=== PATIENT | female | born 1950 | race Caucasian/White ===

== ENCOUNTER 2017-04-17 13:54 | Inpatient (IN) | payer MEDICARE, OTHER ==
[~2017-04-17] VITALS: Ht 160 cm; Wt 60.8 kg
[~2017-04-17 13:54] MED LIST: AMLO10TA2 PO; Aspirin PO; BENZ1TAB7 PO; BUSP10TA3 PO; CALC-513 PO; HYDR-3326 PO; LEVO50TA PO; LISI10TA59 PO; LORA1TAB PO; METO50TA16 PO; MIRT15TA7 PO; MULT-659 PO; NICO1PAT25 TD; OMEP40CA37 PO; RISP0.2515 PO; TRAM50TA2 PO; TRAZ-144 PO; ZOLP5TAB2 PO
--- NOTE | 2017-04-17 14:28 | NUR ---
TOMI FROM SNF TO ER BED 11. PRESENTS W/ R KNEE PAIN AND SWELLING. PER REPORT, PT WAS SENT BY DR ALLI [id number] POSSIBLE AMPUTATION. GOWNED AND PLACED ON MONITOR. NNAD NOTED. AWAITING MD GARCIA.
--- NOTE | 2017-04-17 14:33 | NUR ---
DR NORTON AT BEDSIDE FOR EVAL.
--- NOTE | 2017-04-17 14:48 | NUR ---
CALLED KARELY CONDE, DR CARSON WAS PAGED.
--- NOTE | 2017-04-17 14:55 | NUR ---
IV LINE STARTED. BLOOD DRAWN AND SENT TO LAB.
[2017-04-17 15:01] LABS: BASOPHILS # (AUTO) 0.4 /CMM (0.0-0.2); BASOPHILS % (AUTO) 3.3 % (0.0-2.0); EOSINOPHILS # (AUTO) 0.3 /CMM (0.0-0.7); HEMATOCRIT 29 % (33-45); HEMOGLOBIN 9.7 g/dL (11.5-14.8); LYMPHOCYTES % (AUTO) 15.7 % (20.0-44.0); MEAN CORPUSCULAR HEMOGLOBIN 25 PG (26.0-33.0); MEAN CORPUSCULAR HGB CONC 34 g/dl (31.0-36.0); MEAN CORPUSCULAR VOLUME 73 fL (82-100); MONOCYTES # (AUTO) 0.6 /CMM (0.1-1.30); MONOCYTES % (AUTO) 4.3 % (2.0-12.0); NEUTROPHILS # (AUTO) 9.6 /CMM (1.8-8.9); NEUTROPHILS % (AUTO) 74.7 % (43.0-81.0); PLATELET COUNT (AUTO) 427 /CMM (150-450); RDW COEFFICIENT OF VARIATION 18.7 (11.5-15.0); RED BLOOD CELL COUNT(AUTO) 3.93 MIL/uL (4.0-5.2); WHITE BLOOD COUNT (AUTO) 12.9 K/uL (4.3-11.0)
[2017-04-17 15:13] LABS: CALCIUM, SERUM 9.9 mg/dL (8.5-10.1); CREATININE 1.1 mg/dL (0.6-1.3); POTASSIUM 3.8 mmol/L (3.5-5.1)
[2017-04-17 15:15] LABS: INR 0.99 (0.85-1.15)
[2017-04-17] MEDS ORDERED: ACET-868 PO (15:22)
[2017-04-17] MEDS ORDERED: RISP0.253 PO (15:22)
[2017-04-17] MEDS ORDERED: AMLO10TA2 PO (15:22)
[2017-04-17] MEDS ORDERED: POLY17PO4 PO (15:22)
[2017-04-17] MEDS ORDERED: PANT40TA4 PO (15:22)
[2017-04-17] MEDS ORDERED: CALC-261 PO (15:22)
[2017-04-17] MEDS ORDERED: ASPI-1169 PO (15:22)
[2017-04-17] MEDS ORDERED: NA P133E RC (15:22)
[2017-04-17] MEDS ORDERED: LISI-603 PO (15:22)
[2017-04-17] MEDS ORDERED: METO25TA20 PO (15:22)
--- NOTE | 2017-04-17 15:23 | NUR ---
CALLED KARELY CONDE, DIRECTOR RIVER RESTORATION WAS REPAGED.
--- NOTE | 2017-04-17 15:31 | NUR ---
MS 202
--- NOTE | 2017-04-17 16:24 | NUR ---
REPORT GIVEN TO ROMULO. PT AWAITING TRANSFER TO FLOOR.
[2017-04-17] MEDS ORDERED: NA PHOS,M-B/NA PHOS,DI-BA 1 EA ENEMA RC PRN (16:30)
[2017-04-17] MEDS ORDERED: MAGNESIUM HYDROXIDE 30 ML UDC PO PRN (16:30)
[2017-04-17] MEDS ORDERED: ONDANSETRON HCL/PF 4 MG/2 ML VIAL IVP PRN (16:30)
[2017-04-17] MEDS ORDERED: HYDROCODONE/APAP 5/325MG 1 EACH TABLET PO PRN (16:30)
[2017-04-17] MEDS ORDERED: Z GUARD REMEDY 2 OZ OINT TP PRN (16:30)
[2017-04-17] MEDS ORDERED: ACETAMINOPHEN 325 MG TABLET PO PRN (16:30)
[2017-04-17] MEDS ORDERED: HYDROCODONE/APAP 10/325MG 1 EA TABLET PO PRN (16:30)
[2017-04-17] MEDS ORDERED: MAG HYDROX/AL HYDROX/SIMETH 30 ML UDC PO PRN (16:30)
[2017-04-17] MEDS ORDERED: TRAMADOL HCL 50 MG TABLET PO PRN (16:30)
[2017-04-17 17:00] VITALS: BP 149/72
[2017-04-17] MEDS ORDERED: busPIRone HCL 10 MG TABLET PO SCH (17:00)
[2017-04-17] MEDS: risperiDONE 1 MG TABLET PO SCH (17:36)
[2017-04-17] MEDS: CALCIUM CARB 600MG /VIT D 1 EACH TABLET PO SCH (17:36)
[2017-04-17] MEDS: busPIRone 5 MG TABLET PO SCH (17:36)
[2017-04-17] MEDS: IV NS 0.9% 1,000 ML IV PRN (17:36)
[2017-04-17] MEDS: METOPROLOL TARTRATE 25 MG TABLET PO SCH (17:36)
--- NOTE | 2017-04-17 18:23 | NUR ---
M/S RN - Notes Admitted from ER with c/o right knee pain and swelling. Patient A/O x 3, afebrile, appears comfortable, no apparent distress seen, oriented to room and use of call light. All belongings accounted, refused valuables to be placed in the safe. Skin assessment done and documented, noted with right knee redness, swelling, scaly skin, and scab, picture was taken for reference. Patient independent with bed mobility. Plan for right AKA on Friday04/19/17. Patient updated on treatment plan. Will continue to monitor closely.
--- NOTE | 2017-04-17 19:15 | NUR ---
ms rn notes received pt in bed, watching tv at this time, a/o x 4, verbally responsive. no distress, no sob noted at this time. iv site on left hand and lfa intact and patent , flushed, with no s/s of infiltration noted. pt denies any pain or discomfort at this time. all needs attended and met. comfortable as verbalized. safety precautions observed. call light within reach. will cont to monitor.
[2017-04-17 20:00] VITALS: BP 122/58
[2017-04-17 20:41] VITALS: BP 122/58
[2017-04-17] MEDS: BENZTROPINE MESYLATE (1 MG) 1 MG TABLET PO SCH (21:21)
[2017-04-17] MEDS: TRAZODONE 50 MG TABLET PO SCH (21:22)
[2017-04-17] MEDS: MIRTAZAPINE 15 MG TABLET PO SCH (21:22)
[2017-04-17] MEDS: POLYETHYLENE GLYCOL 3350 17 GM POWD.PACK PO SCH (21:24)
[2017-04-18 06:43] LABS: BASOPHILS % (AUTO) 0.5 % (0.0-2.0); EOSINOPHILS # (AUTO) 0.4 /CMM (0.0-0.7); EOSINOPHILS % (AUTO) 4.1 % (0.0-6.0); HEMATOCRIT 25 % (33-45); HEMOGLOBIN 8.3 g/dL (11.5-14.8); LYMPHOCYTES # (AUTO) 2.1 /CMM (0.8-4.8); LYMPHOCYTES % (AUTO) 22.6 % (20.0-44.0); MEAN CORPUSCULAR HEMOGLOBIN 24 PG (26.0-33.0); MEAN CORPUSCULAR HGB CONC 33 g/dl (31.0-36.0); MEAN CORPUSCULAR VOLUME 74 fL (82-100); MONOCYTES # (AUTO) 0.6 /CMM (0.1-1.30); MONOCYTES % (AUTO) 6.3 % (2.0-12.0); NEUTROPHILS # (AUTO) 6.2 /CMM (1.8-8.9); NEUTROPHILS % (AUTO) 66.5 % (43.0-81.0); PLATELET COUNT (AUTO) 351 /CMM (150-450); RED BLOOD CELL COUNT(AUTO) 3.41 MIL/uL (4.0-5.2); WHITE BLOOD COUNT (AUTO) 9.3 K/uL (4.3-11.0)
--- NOTE | 2017-04-18 06:46 | NUR ---
ms rn notes pt in bed, resting comfortably in bed,arouses easily, a/o x 4, verbally responsive. no distress, no sob noted at this time. iv site on left hand and lfa intact and patent , flushed, with no s/s of infiltration noted. no c/o pain or discomfort at this time. all needs attended and met. safety precautions observed. call light within reach. will endorse to next shift for sandra.
[2017-04-18 07:08] LABS: BILIRUBIN,TOTAL 0.2 mg/dL (0.2-1.0); CALCIUM, SERUM 9.5 mg/dL (8.5-10.1); CREATININE 1.1 mg/dL (0.6-1.3); MAGNESIUM 1.8 mg/dL (1.8-2.4); POTASSIUM 3.9 mmol/L (3.5-5.1)
[2017-04-18 07:26] LABS: THYROID STIMULATING HORMONE 2.186 uIU/mL (0.358-3.74)
[2017-04-18] MEDS: IV NS 0.9% 1,000 ML IV PRN ×2 (07:34→21:51)
[2017-04-18 08:00] VITALS: BP 145/74
--- NOTE | 2017-04-18 08:00 | NUR ---
MS RN NOTES PATIENT RECEIVED AWAKE, ALERT AND ORIENTED. VERBALLY RESPONSIVE AND RESPONDS TO VERBAL AND TACTILE STIMULI. PATIENT BREATHING EVEN AND UNLABORED. NO SOB OR CONGESTION NOTED. PATIENT AFEBRILE, SKIN DRY AND WARM TO TOUCH. NO CHANGES IN LOC NOTED. PATIENT SEEN EATING BREAKFAST, ABLE TO CONSUME MEAL UNDER SUPERVISION WITH SET-UP ASSISTANCE WITH MEAL TRAY. NO CHOKING OR ASPIRATION EPISODE NOTED. WILL CONTINUE TO MONITOR
[2017-04-18] MEDS: risperiDONE 1 MG TABLET PO SCH ×2 (08:28→17:41)
[2017-04-18] MEDS: PANTOPRAZOLE 40 MG TABLET.DR PO SCH (08:29)
[2017-04-18] MEDS: busPIRone 5 MG TABLET PO SCH ×2 (08:29→17:40)
[2017-04-18] MEDS: CALCIUM CARB 600MG /VIT D 1 EACH TABLET PO SCH ×2 (08:29→17:40)
[2017-04-18] MEDS: LEVOTHYROXINE SODIUM 50 MCG TABLET PO SCH (08:29)
[2017-04-18] MEDS: METOPROLOL TARTRATE 25 MG TABLET PO SCH ×2 (08:30→17:40)
[2017-04-18] MEDS: ASPIRIN 81 MG TAB.CHEW PO SCH (08:30)
[2017-04-18] MEDS: AMLODIPINE BESYLATE 10 MG TABLET PO SCH (08:30)
[2017-04-18] MEDS: LISINOPRIL (20MG) 20 MG TABLET PO SCH (08:30)
--- NOTE | 2017-04-18 12:00 | NUR ---
MS RN NOTES PATIENT SEEN AND EXAMINED WITH GAVI LOVETT. PATIENT WITH PLAN FOR RIGHT AKA WITH DR. CARSON ON 04/19/17 AT 0730.
--- NOTE | 2017-04-18 14:00 | NUR ---
MS RN NOTES PATIENT AWAKE, ALERT, VERBALLY RESPONSIVE AND RESPONDS TO VERBAL AND TACTILE STIMULI. AWARE OF PLANNED SURGERY WITH DR. CARSON. VERIFIED INFORMED CONSENT OBTAINED BY MD. PATIENT TO BE NPO AFTER MIDNIGHT. PATIENT AWARE AND VERBALIZED UNDERSTANDING
[2017-04-18 16:00] VITALS: BP 140/73
--- NOTE | 2017-04-18 16:19 | NUR ---
Spoke with patient, stated she resides at [facility]- [facility] in [address] [place] [address] .She is bedfast most of the time, requires max to total assist with adl's. Spoke with Vishal- admissions at [facility], bed is available and will take patient back once discharge. Addendum: 04/18/17 at 1620 by TINA PALACIOS RN Amended: Links added.
--- NOTE | 2017-04-18 19:30 | NUR ---
ms rn notes received pt in bed, watching tv at this time, a/o x 4, verbally responsive. no distress, no sob noted. iv site on left hand and lfa intact and patent , flushed, with no s/s of infiltration noted.ivf infusing well. pt denies any pain or discomfort at this time. all needs attended and met. comfortable as verbalized. safety precautions observed. call light within reach. will cont to monitor.
--- NOTE | 2017-04-18 19:30 | NUR ---
MS RN NOTES PATIENT RESTING INSIDE ROOM, AWAKE, ALERT AND ORIENTED, ABLE TO MAKE NEEDS KNOWN AND FOLLOW SIMPLE INSTRUCTIONS. BREATHING EVEN AND UNLABORED. DENIES ANY PAIN OR DISCOMFORT. NO CHANGES IN LOC NOTED. PATIENT AFEBRILE, SKIN DRY AND WARM TO TOUCH. WILL CONTINUE TO MONITOR. PATIENT KEPT CLEAN, DRY AND COMFORTABLE. PROVIDED WITH CALM, SAFE, HAZARD-FREE ENVIRONMENT. CALL LIGHT WITHIN EASY REACH
[2017-04-18 20:00] VITALS: BP_SYST 134; BP_SYST 154; BP_DIAS 63
[2017-04-18] MEDS: MIRTAZAPINE 15 MG TABLET PO SCH (21:48)
[2017-04-18] MEDS: BENZTROPINE MESYLATE (1 MG) 1 MG TABLET PO SCH (21:49)
[2017-04-18] MEDS: TRAZODONE 50 MG TABLET PO SCH (21:49)
[2017-04-18] MEDS: POLYETHYLENE GLYCOL 3350 17 GM POWD.PACK PO SCH (21:50)
--- NOTE | 2017-04-18 21:50 | NUR ---
pt refused miralax, risk and benefits explained pt still refused x 3.
[2017-04-19 04:00] VITALS: BP 158/79
--- NOTE | 2017-04-19 06:39 | NUR ---
ms rn notes pt in bed, resting comfortably, arouses easily, a/o x 4, verbally responsive. no distress, no sob noted. iv site on left hand and lfa intact and patent , flushed, with no s/s of infiltration noted. ivf infusing well. pt denies any pain or discomfort at this time. pt on npo starting midnight for surgery this morning. pt for right aka, consent was signed, checklist completed. all needs attended and met. safety precautions observed. call light within reach. will endorse to next shift for sandra.
[2017-04-19] MEDS ORDERED: ANESTHESIA TRAY IN PYXIS 1 EA TRAY MC ONE (06:45)
--- NOTE | 2017-04-19 07:10 | NUR ---
PT WAS PICKED UP BY OR STAFF FOR RIGHT ABOVE THE KNEE AMPUTATION, PT IN STABLE CONDITION, AWAKE, A/O X 3 AND VERBALLY RESPONSIVE.
[2017-04-19] MEDS ORDERED: HYDROMORPHONE INJ 2 MG/ML DISP.SYRIN ONE (07:16)
[2017-04-19] MEDS: PANTOPRAZOLE 40 MG TABLET.DR PO SCH (07:30)
[2017-04-19] MEDS: LEVOTHYROXINE SODIUM 50 MCG TABLET PO SCH (07:30)
[2017-04-19] MEDS: risperiDONE 1 MG TABLET PO SCH ×2 (09:00→17:02)
[2017-04-19] MEDS: ASPIRIN 81 MG TAB.CHEW PO SCH (09:00)
[2017-04-19] MEDS: AMLODIPINE BESYLATE 10 MG TABLET PO SCH (09:00)
[2017-04-19] MEDS: CALCIUM CARB 600MG /VIT D 1 EACH TABLET PO SCH ×2 (09:00→17:01)
[2017-04-19] MEDS: METOPROLOL TARTRATE 25 MG TABLET PO SCH ×2 (09:00→17:02)
[2017-04-19] MEDS: busPIRone 5 MG TABLET PO SCH ×2 (09:00→17:01)
[2017-04-19] MEDS: LISINOPRIL (20MG) 20 MG TABLET PO SCH (09:00)
--- NOTE | 2017-04-19 09:00 | NUR ---
MS/RN NOTES PATIENT IN SURGERY.
[2017-04-19 09:44] VITALS: BP 151/76
--- NOTE | 2017-04-19 10:05 | NUR ---
MS/RN NOTES RECEIVED PATIENT FROM SURGERY S/P RIGHT AKA AMPUTATION IN STABLE CONDITION, AWAKE AND ORIENTED X2, VERBALLY RESPONSIVE, COMPLAINTS OF EXCRUCIATING PAIN OF THE RIGHT SURGICAL SITE, RESPIRATION EVEN AND UNLABORED, ON 02 VIA NC AT 2LPM. VITAL SIGNS STABLE WNL. PER MD ORDER RESUME CARE, NEW ORDER FOR PERCOCET 1-2TAB PRN. ORDERS FAXED TO PHARMACY. WILL CONTINUE TO MONITOR.
--- NOTE | 2017-04-19 10:14 | NUR ---
MS/RN NOTES PATIENT COMPLAINTS OF EXCRUCIATING PAIN OF THE RIGHT POST UP SURGICAL AREA. PATIENT ALLERGIC TO CODEINE HOWEVER PATIENT STATED THAT SHE DOES NOT GET ANY ABNORMAL REACTIONS TO PAIN MEDICATIONS AND TOLERATED NORCOTICS. PATIENT AGREED FOR [place]INA RN ADMINISTERED 10-325MG 1 TAB EVERY 4 HOURS NEEDED FOR PAIN ORDERED. WILL MONITOR PATIENT CLOSELY AND ACCORDANTLY
[2017-04-19] MEDS: oxyCODONE/APAP (5/325 MG) 1 UDTAB TABLET PO PRN ×4 (11:40→20:27)
[2017-04-19] MEDS: ANCEF 1 GM/50 ML D5W IV SCH ×4 (14:13→21:10)
--- NOTE | 2017-04-19 14:21 | NUR ---
MS/RN NOTES PATIENT CLEANED, REPOSITIONED AND PROVIDED PAIN MANAGEMENT PROVIDED. IV ANCEF ADMINISTERED ORDERED.
[2017-04-19 16:00] VITALS: BP 148/70
[2017-04-19] MEDS: IV NS 0.9% 1,000 ML IV PRN (17:04)
--- NOTE | 2017-04-19 18:48 | NUR ---
MS/RN NOTES PATIENT RESTING IN BED COMFORTABLY, NO DISTRESS OR DISCOMFORT NOTED. PATIENT STABLE, VITAL SIGNS WNL, NO SIGNIFICANT CHANGES NOTED. AROUND THE CLOCK PAIN MANAGEMENT PROVIDED. SURGICAL DRESSING SITE INTACT, NO BLEEDING NOTED. WITH ALL DUE MEDICATIONS GIVEN, ALL NEEDS MET AND ATTENDED. IV GENTLE HYDRATION INFUSING TO LEFT HAND 22G. PATENT AND INTACT. WILL ENDORSE CARE TO MEDICAL HOUSEKEEPER FOR DEB.
[2017-04-19 20:00] VITALS: BP 132/68
[2017-04-19] MEDS: POLYETHYLENE GLYCOL 3350 17 GM POWD.PACK PO SCH (21:10)
[2017-04-19] MEDS: BENZTROPINE MESYLATE (1 MG) 1 MG TABLET PO SCH (21:10)
[2017-04-19] MEDS: MIRTAZAPINE 15 MG TABLET PO SCH (21:10)
[2017-04-19] MEDS: TRAZODONE 50 MG TABLET PO SCH (21:10)
[2017-04-20] VITALS (7 sets, daily range): BP systolic 110–148; BP diastolic 53–74
[2017-04-20] MEDS: IV NS 0.9% 1,000 ML IV PRN (05:09)
[2017-04-20] MEDS: oxyCODONE/APAP (5/325 MG) 1 UDTAB TABLET PO PRN ×3 (06:13→19:22)
--- NOTE | 2017-04-20 06:33 | NUR ---
MS RN NOTES AWAKE & RESPONSIVE. NOT IN ANY DISTRESS. NO SOB NOTED. DENIES ANY PAIN OR DISCOMFORT AT THIS TIME. WITH IVF INFUSING WELL. AM CARE DONE. MONITORED ACCORDINGLY. CALL LIGHT WITHIN REACH. BED IN LOWEST POSITION. SR UP X 2 FOR SAFETY. WILL ENDORSE TO NEXT SHIFT.
--- NOTE | 2017-04-20 07:33 | NUR ---
MS/RN NOTES RECEIVED PATIENT RESTING IN BED, SLEEPING AROUSES TO VERBAL AND TACTILE STIMULI. PATIENT APPEARS COMFORTABLE, NO S/S OF DISTRESS OR DISCOMFORT NOTED. S/P RIGHT AKA 04/19/17, DRESSING INTACT, NO BLEEDING NOTED. IV TO LEFT HAND 22 INFUSING AT 60CC/HR. PAIN MANAGEMENT APPROPRIATE. SAFETY MEASURES RENDERED, CALL LIGHT PLACED WITHIN EASY REACH. WILL CONTINUE TO MONITOR.
[2017-04-20 08:29] LABS: BILIRUBIN,TOTAL 0.1 mg/dL (0.2-1.0); CALCIUM, SERUM 9.3 mg/dL (8.5-10.1); CREATININE 1.3 mg/dL (0.6-1.3); MAGNESIUM 1.6 mg/dL (1.8-2.4); PHOSPHORUS 3.5 mg/dL (2.5-4.9); POTASSIUM 3.9 mmol/L (3.5-5.1); TOTAL PROTEIN, SERUM 6.6 g/dL (6.4-8.2)
[2017-04-20 08:44] LABS: BASOPHILS % (AUTO) 0.6 % (0.0-2.0); EOSINOPHILS # (AUTO) 0.2 /CMM (0.0-0.7); EOSINOPHILS % (AUTO) 2.5 % (0.0-6.0); HEMATOCRIT 22 % (33-45); HEMOGLOBIN 7.2 g/dL (11.5-14.8); LYMPHOCYTES # (AUTO) 1.9 /CMM (0.8-4.8); LYMPHOCYTES % (AUTO) 24.5 % (20.0-44.0); MEAN CORPUSCULAR HEMOGLOBIN 24 PG (26.0-33.0); MEAN CORPUSCULAR HGB CONC 32 g/dl (31.0-36.0); MEAN CORPUSCULAR VOLUME 75 fL (82-100); MONOCYTES # (AUTO) 0.7 /CMM (0.1-1.30); MONOCYTES % (AUTO) 8.7 % (2.0-12.0); NEUTROPHILS # (AUTO) 4.8 /CMM (1.8-8.9); NEUTROPHILS % (AUTO) 63.7 % (43.0-81.0); PLATELET COUNT (AUTO) 328 /CMM (150-450); RDW COEFFICIENT OF VARIATION 19.9 (11.5-15.0); RED BLOOD CELL COUNT(AUTO) 2.94 MIL/uL (4.0-5.2); WHITE BLOOD COUNT (AUTO) 7.6 K/uL (4.3-11.0)
[2017-04-20] MEDS: CALCIUM CARB 600MG /VIT D 1 EACH TABLET PO SCH ×2 (09:37→16:56)
[2017-04-20] MEDS: risperiDONE 1 MG TABLET PO SCH ×2 (09:38→16:56)
[2017-04-20] MEDS: busPIRone 5 MG TABLET PO SCH ×2 (09:38→16:56)
[2017-04-20] MEDS: AMLODIPINE BESYLATE 10 MG TABLET PO SCH (09:41)
[2017-04-20] MEDS: METOPROLOL TARTRATE 25 MG TABLET PO SCH ×2 (09:41→16:02)
[2017-04-20] MEDS: ASPIRIN 81 MG TAB.CHEW PO SCH (09:41)
[2017-04-20] MEDS: LISINOPRIL (20MG) 20 MG TABLET PO SCH (09:41)
[2017-04-20] MEDS: LEVOTHYROXINE SODIUM 50 MCG TABLET PO SCH (09:44)
[2017-04-20] MEDS: PANTOPRAZOLE 40 MG TABLET.DR PO SCH (09:44)
--- NOTE | 2017-04-20 11:37 | NUR ---
MS/RN NOTES PATIENTS HEMOGLOBIN/HEMATOCRIT LEVELS 7.2/ FROM 8.3/. PROJECT MANAGEMENT ADVISOR APRIL NOTIFIED, ORDERS RECEIVED FOR 1 UNIT PRBC. PATIENT STABLE, ASYMPTOMATIC. WILL PROCESS AND CARRY OUT ORDERS RECEIVED.
[2017-04-20] MEDS: Magnesium 1GM/D5W 100ML PREMIX 100 ML IV SCH ×2 (11:51→14:05)
--- NOTE | 2017-04-20 13:37 | NUR ---
MS/RN NOTES BLOOD TRANSFUSION BEGUN, VITAL SIGNS STABLE. PATIENT INSTRUCTED ON THE REASONING OF BLOOD TRANSFUSION AND ITS BENEFITS, INSTRUCTED ON S/S TO OBSERVE FOR D/T POSSIBLE REACTION AND WHEN TO REPORT. PATIENT VERBALIZED UNDERSTANDING OF INSTRUCTIONS GIVEN. WILL CONTINUE TO MONITOR.
--- NOTE | 2017-04-20 14:57 | NUR ---
MS/RN NOTES PATIENT APPEARS CALM AND COMFORTABLE, SLEEPING AROUSES TO VERBAL STIMULI. DENIES ANY DISTRESS OR DISCOMFORT. VITAL SIGNS REMAIN STABLE, NO C/O OF CHILLS, FLANK PAIN, SOB. WILL CONTINUE TO MONITOR
--- NOTE | 2017-04-20 18:25 | NUR ---
MS/RN NOTES PATIENT IS RESTING IN BED COMFORTABLY, NO SIGNIFICANT CHANGES NOTED, STABLE, IN NO APPARENT DISTRESS, UNLABORED BREATHING ON ROOM AIR. NO S/S OF COMPLICATIONS NOTED PATIENT. PAIN MANAGEMENT DONE, DENIES PAIN OR DISCOMFORT AT THIS TIME. 1 UNIT OF PRBC INFUSED. PATIENT KEPT CLEAN AND DRY, ABLE TO REPOSITION SELF IN BED. S/P RIGHT AKA, DRESSING SITE INTACT AND ELEVATED TO REDUCE EDEMA. ALL NEEDS MET AND ATTENDED, ALL DUE MEDICATIONS GIVEN, SAFETY MEASURES RENDERED, CALL LIGHT PLACED WITHIN EASY REACH. WILL ENDORSE CARE TO [employer] SUPERINTENDENT FOR DEB.
[2017-04-20] MEDS: MIRTAZAPINE 15 MG TABLET PO SCH (21:15)
[2017-04-20] MEDS: TRAZODONE 50 MG TABLET PO SCH (21:15)
[2017-04-20] MEDS: BENZTROPINE MESYLATE (1 MG) 1 MG TABLET PO SCH (21:15)
[2017-04-20] MEDS: POLYETHYLENE GLYCOL 3350 17 GM POWD.PACK PO SCH (21:16)
[2017-04-21] MEDS: IV NS 0.9% 1,000 ML IV PRN (03:12)
[2017-04-21 04:00] VITALS: BP 150/83
[2017-04-21 07:00] LABS: BASOPHILS % (AUTO) 0.5 % (0.0-2.0); EOSINOPHILS # (AUTO) 0.3 /CMM (0.0-0.7); EOSINOPHILS % (AUTO) 3.6 % (0.0-6.0); HEMATOCRIT 27 % (33-45); HEMOGLOBIN 9.2 g/dL (11.5-14.8); LYMPHOCYTES # (AUTO) 1.6 /CMM (0.8-4.8); LYMPHOCYTES % (AUTO) 16.2 % (20.0-44.0); MEAN CORPUSCULAR HEMOGLOBIN 25 PG (26.0-33.0); MEAN CORPUSCULAR HGB CONC 34 g/dl (31.0-36.0); MEAN CORPUSCULAR VOLUME 75 fL (82-100); MONOCYTES # (AUTO) 0.6 /CMM (0.1-1.30); MONOCYTES % (AUTO) 5.9 % (2.0-12.0); NEUTROPHILS # (AUTO) 7.1 /CMM (1.8-8.9); NEUTROPHILS % (AUTO) 73.8 % (43.0-81.0); PLATELET COUNT (AUTO) 342 /CMM (150-450); RED BLOOD CELL COUNT(AUTO) 3.63 MIL/uL (4.0-5.2); WHITE BLOOD COUNT (AUTO) 9.6 K/uL (4.3-11.0)
--- NOTE | 2017-04-21 07:41 | NUR ---
MS/RN Patient received Patient stating that dressing to stump feels too tight, like a "band has been placed around my leg" Dressing and stump inspected and found to be inplace without any indentation noted. Will inform MD, per note, dressing to be removed by MD only. All other needs attended, will continue to monitor and ensure safety.
[2017-04-21 07:53] VITALS: BP 154/80
[2017-04-21] MEDS: ASPIRIN 81 MG TAB.CHEW PO SCH (08:12)
[2017-04-21] MEDS: AMLODIPINE BESYLATE 10 MG TABLET PO SCH (08:12)
[2017-04-21] MEDS: busPIRone 5 MG TABLET PO SCH ×2 (08:12→17:02)
[2017-04-21] MEDS: CALCIUM CARB 600MG /VIT D 1 EACH TABLET PO SCH ×2 (08:12→17:01)
[2017-04-21] MEDS: PANTOPRAZOLE 40 MG TABLET.DR PO SCH (08:12)
[2017-04-21] MEDS: LISINOPRIL (20MG) 20 MG TABLET PO SCH (08:12)
[2017-04-21] MEDS: LEVOTHYROXINE SODIUM 50 MCG TABLET PO SCH (08:12)
[2017-04-21] MEDS: oxyCODONE/APAP (5/325 MG) 1 UDTAB TABLET PO PRN ×2 (08:12→19:47)
[2017-04-21 08:13] VITALS: BP 154/80
[2017-04-21] MEDS: METOPROLOL TARTRATE 25 MG TABLET PO SCH ×2 (08:13→17:02)
[2017-04-21] MEDS: risperiDONE 1 MG TABLET PO SCH ×2 (08:13→17:01)
--- NOTE | 2017-04-21 09:30 | NUR ---
MS/RN S/B Dr Thomason Seen by Dr Thomason - blood pressure now better controlled following surgery. Continue with current medications.
--- NOTE | 2017-04-21 12:00 | NUR ---
MS/RN S/B Pramod Mccoy Seen by BILINGUAL MIDDLE SCHOOL TEACHER - labs ordered for tomorrow.
[2017-04-21 16:02] VITALS: BP 139/59
--- NOTE | 2017-04-21 18:09 | NUR ---
MS/RN End note No changes at this time. Dressing to right stump dry and intact. Remains elevated on two pillows to help reduce any swelling post op. Vital signs remain stable and within normal range for patient. Will continue to monitor and endorse to manager medicare.
--- NOTE | 2017-04-21 19:50 | NUR ---
MS RN NOTE: PATIENT RESTING IN PLACE, NO ACUTE DISTRESS NOTED. BREATHING EVEN AND UNLABORED, NO SOB NOTED. IV TO LEFT HAND IN PLACE. DRESSING TO RIGHT AKA, NO BLEEDING NOTED. PATIENT COMPLAINS OF PAIN TO RIGHT LEFT/KNEE 09/30, PERCOCET 5/325MG 1 TAB ORAL, PER MD ORDER. BED LOCKED AND IN LOWEST POSITION, CALL LIGHT IN REACH. WILL CONTINUE TO MONITOR.
[2017-04-21 20:00] VITALS: BP 156/74
[2017-04-21] MEDS: POLYETHYLENE GLYCOL 3350 17 GM POWD.PACK PO SCH (21:47)
[2017-04-21] MEDS: MIRTAZAPINE 15 MG TABLET PO SCH (21:47)
[2017-04-21] MEDS: BENZTROPINE MESYLATE (1 MG) 1 MG TABLET PO SCH (21:47)
[2017-04-21] MEDS: TRAZODONE 50 MG TABLET PO SCH (21:47)
--- NOTE | 2017-04-22 03:15 | NUR ---
MS RN NOTE: PATIENT SLEEPING IN BED, NO ACUTE DISTRESS NOTED. BREATHING EVEN AND UNLABORED, NO SOB NOTED. WILL CONTINUE TO MONITOR.
--- NOTE | 2017-04-22 06:20 | NUR ---
MS RN NOTE: PATIENT RESTING IN PLACE, NO ACUTE DISTRESS NOTED. BREATHING EVEN AND UNLABORED, NO SOB NOTED. IV TO LEFT HAND IN PLACE. DRESSING TO RIGHT AKA, NO BLEEDING NOTED. BED LOCKED AND IN LOWEST POSITION, CALL LIGHT IN REACH. WILL ENDORSE TO DAY NURSE TO CONTINUE WITH PLAN OF CARE.
[2017-04-22 06:38] LABS: BASOPHILS % (AUTO) 0.4 % (0.0-2.0); EOSINOPHILS # (AUTO) 0.5 /CMM (0.0-0.7); EOSINOPHILS % (AUTO) 5.4 % (0.0-6.0); HEMATOCRIT 27 % (33-45); HEMOGLOBIN 8.9 g/dL (11.5-14.8); LYMPHOCYTES # (AUTO) 2.2 /CMM (0.8-4.8); LYMPHOCYTES % (AUTO) 24.9 % (20.0-44.0); MEAN CORPUSCULAR HEMOGLOBIN 25 PG (26.0-33.0); MEAN CORPUSCULAR HGB CONC 33 g/dl (31.0-36.0); MEAN CORPUSCULAR VOLUME 75 fL (82-100); MONOCYTES # (AUTO) 0.6 /CMM (0.1-1.30); MONOCYTES % (AUTO) 6.3 % (2.0-12.0); NEUTROPHILS # (AUTO) 5.6 /CMM (1.8-8.9); PLATELET COUNT (AUTO) 340 /CMM (150-450); RDW COEFFICIENT OF VARIATION 19.5 (11.5-15.0); RED BLOOD CELL COUNT(AUTO) 3.53 MIL/uL (4.0-5.2); WHITE BLOOD COUNT (AUTO) 8.8 K/uL (4.3-11.0)
[2017-04-22 06:51] LABS: ALBUMIN 2.2 g/dL (3.4-5.0); BILIRUBIN,TOTAL 0.2 mg/dL (0.2-1.0); CALCIUM, SERUM 9.3 mg/dL (8.5-10.1); CREATININE 1.2 mg/dL (0.6-1.3); MAGNESIUM 1.6 mg/dL (1.8-2.4); PHOSPHORUS 2.9 mg/dL (2.5-4.9); POTASSIUM 3.8 mmol/L (3.5-5.1); TOTAL PROTEIN, SERUM 7.2 g/dL (6.4-8.2)
--- NOTE | 2017-04-22 07:30 | NUR ---
RN MS NOTES PT IN BED, ASLEEP, BREATHING PATTERN REGULAR, NO FACIAL GRIMACING OR MOANING, EASY TO AROUSE, ALERT AND ORIENTED, NO COMPLAINT OF PAIN AT THIS TIME, ASSISTED WITH BREAKFAST, CALL ZAY ENRIQUE, NEEDS ATTENDED.
[2017-04-22] MEDS: LEVOTHYROXINE SODIUM 50 MCG TABLET PO SCH (08:11)
[2017-04-22] MEDS: PANTOPRAZOLE 40 MG TABLET.DR PO SCH (08:11)
[2017-04-22] MEDS: risperiDONE 1 MG TABLET PO SCH ×2 (08:11→16:30)
[2017-04-22] MEDS: METOPROLOL TARTRATE 25 MG TABLET PO SCH ×2 (08:12→16:30)
[2017-04-22] MEDS: LISINOPRIL (20MG) 20 MG TABLET PO SCH (08:12)
[2017-04-22] MEDS: ASPIRIN 81 MG TAB.CHEW PO SCH (08:12)
[2017-04-22] MEDS: busPIRone 5 MG TABLET PO SCH ×2 (08:12→16:31)
[2017-04-22] MEDS: AMLODIPINE BESYLATE 10 MG TABLET PO SCH (08:12)
[2017-04-22] MEDS: CALCIUM CARB 600MG /VIT D 1 EACH TABLET PO SCH ×2 (08:13→16:30)
[2017-04-22] MEDS: oxyCODONE/APAP (5/325 MG) 1 UDTAB TABLET PO PRN ×2 (08:21→18:20)
[2017-04-22 08:28] VITALS: BP 158/90
[2017-04-22] MEDS: Magnesium 1GM/D5W 100ML PREMIX 100 ML IV SCH ×2 (09:52→10:53)
--- NOTE | 2017-04-22 11:03 | NUR ---
RN MS NOTES PT IN BED, RESTING, NO COMPLAINT OF PAIN AT THIS TIME, BREATHING PATTERN NORMAL AND NOT LABORED, DRESSING TO RIGHT AKA INTACT, CLEAN AND DRY, PT SEEN BY FAY, CLEARED BY ORTHO TO D/C TO SNF/REHAB AND TO FOLLOW UP WITH DR. CARSON IN 1-2 WEEKS, KEPT PT CLEAN AND COMFORTABLE, BED BATH GIVEN BY INVERFORM MACHINE OPERATOR, TURNED AND REPOSITIONED.
[2017-04-22] MEDS ORDERED: hydrALAZINE HCL 25 MG TABLET PO PRN (13:00)
[2017-04-22 16:01] VITALS: BP 127/63
[2017-04-22] MEDS: SOD FERRIC GLUC 125 MG in IV NS 0.9% 100 ML IV SCH (16:24)
--- NOTE | 2017-04-22 18:07 | NUR ---
RN MS NOTES PT IN BED, AWAKE, ALERT AND ORIENTED, NO COMPLAINT OF PAIN OR DISCOMFORT, RESPIRATIONS NORMAL AND NOT LABORED, SEEN BY DR. CALABRESE, PLAN OF CARE DISCUSSED WITH PT, VERBALIZED UNDERSTANDING, PM MEDS GIVEN, NEEDS ATTENDED, CALL LIGHT WITHIN REACH.
--- NOTE | 2017-04-22 19:00 | NUR ---
MS RN NOTE: PATIENT RESTING IN BED, A/OX3. STABLE, NO ACUTE DISTRESS NOTED. BREATHING EVEN AND UNLABORED, NO SOB NOTED. BED LOCKED AND IN LOWEST POSITION, CALL LIGHT IN REACH. WILL CONTINUE TO MONITOR.
[2017-04-22 20:00] VITALS: BP 129/65
[2017-04-22] MEDS: BENZTROPINE MESYLATE (1 MG) 1 MG TABLET PO SCH (21:11)
[2017-04-22] MEDS: POLYETHYLENE GLYCOL 3350 17 GM POWD.PACK PO SCH (21:11)
[2017-04-22] MEDS: TRAZODONE 50 MG TABLET PO SCH (21:11)
[2017-04-22] MEDS: MIRTAZAPINE 15 MG TABLET PO SCH (21:11)
--- NOTE | 2017-04-23 06:33 | NUR ---
MS RN CLOSING NOTES PT COMFORTABLY ASLEEP AND EASILY AWAKEN, TOLERATING ROOM AIR 02 SAT 98% IN STABLE CONDITION. RESPIRATION EVEN AND UNLABORED. KEPT CLEAN AND DRY AND COMFORTABLE, ALL NURSING CARE RENDERED. NEEDS ATTENDED AND ANTICIPATED, FREQUENT VISUAL CHECK DONE FOR SAFETY EVERY 2 HOURS. NO COMPLAINS OF PAIN. GOOD SKIN CARE PROVIDED. PT REPOSITION EVERY 2 HOURS. ON LOW BED AT ALL TIMES TO ENSURE SAFETY. SAFE HAZARD FREE ENVIRONMENT PROVIDED. CALL LIGHT WITHIN EASY TO REACH. WILL ENDORSE NEXT SHIFT CONTINUITY OF CARE
[2017-04-23 06:59] LABS: CALCIUM, SERUM 9.2 mg/dL (8.5-10.1); CREATININE 1.1 mg/dL (0.6-1.3); PHOSPHORUS 3.6 mg/dL (2.5-4.9); POTASSIUM 4.1 mmol/L (3.5-5.1)
--- NOTE | 2017-04-23 07:39 | NUR ---
RN MS NOTES PT IN BED, AWAKE, ALERT AND ORIENTED, NO COMPLAINT OF PAIN OR ANY DISCOMFORT, BREATHING PATTERN NORMAL AND NOT LABORED, CALL LIGHT WITHIN REACH, KEPT COMFORTABLE.
[2017-04-23 08:00] VITALS: BP 158/94
[2017-04-23] MEDS: CALCIUM CARB 600MG /VIT D 1 EACH TABLET PO SCH ×2 (08:19→16:35)
[2017-04-23] MEDS: PANTOPRAZOLE 40 MG TABLET.DR PO SCH (08:19)
[2017-04-23] MEDS: LEVOTHYROXINE SODIUM 50 MCG TABLET PO SCH (08:19)
[2017-04-23] MEDS: risperiDONE 1 MG TABLET PO SCH ×2 (08:19→16:35)
[2017-04-23] MEDS: METOPROLOL TARTRATE 25 MG TABLET PO SCH ×2 (08:20→17:00)
[2017-04-23] MEDS: AMLODIPINE BESYLATE 10 MG TABLET PO SCH (08:20)
[2017-04-23] MEDS: ASPIRIN 81 MG TAB.CHEW PO SCH (08:20)
[2017-04-23] MEDS: LISINOPRIL (20MG) 20 MG TABLET PO SCH (08:20)
[2017-04-23] MEDS: busPIRone 5 MG TABLET PO SCH ×2 (08:20→16:35)
[2017-04-23] MEDS: oxyCODONE/APAP (5/325 MG) 1 UDTAB TABLET PO PRN (08:21)
--- NOTE | 2017-04-23 11:43 | NUR ---
RN MS NOTES PT IN BED, RESTING, NO COMPLAINT OF PAIN AT THIS TIME, NOT IN DISTRESS, PT SEEN BY PHYSICAL THERAPIST, ABLE TO DO BED EXERCISES, PT ALSO SEEN BY DR. WHITTAKER, PLAN OF CARE DISCUSSED WITH PT, VERBALIZED UNDERSTANDING, CALL LIGHT WITHIN REACH.
[2017-04-23] MEDS: SOD FERRIC GLUC 125 MG in IV NS 0.9% 100 ML IV SCH (13:52)
--- NOTE | 2017-04-23 18:44 | NUR ---
RN MS NOTES PT IN BED, AWAKE, ALERT AND ORIENTED, NO COMPLAINT OF PAIN OR DISCOMFORT, BREATHING PATTERN NORMAL, CALL LIGHT WITHIN REACH, TOLERATING CURRENT DIET WELL, PM MEDS GIVEN, PM CARE RENDERED, TURNED AND REPOSITIONED Q2 HOURS, ALL NEEDS ATTENDED.
--- NOTE | 2017-04-23 19:30 | NUR ---
RN NOTES RECEIVED PATIENT IN BED AWAKE, AO X 3, ABLE TO MAKE NEEDS KNOWN. NO ACUTE DISTRESS NOTED. DENIES ANY PAIN AT THIS TIME. IV SITE PATENT, INTACT; FLUSHED. RIGHT AKA DRESSING INTACT. SAFETY REMINDERS GIVEN. ON LOW BED WITH BILATERAL UPPER SIDE RAILS UP. CALL AVILES WITHIN EASY REACH. WILL CONTINUE TO MONITOR.
[2017-04-23 19:43] VITALS: BP 141/72
[2017-04-23 20:00] VITALS: BP 141/72
[2017-04-23] MEDS: POLYETHYLENE GLYCOL 3350 17 GM POWD.PACK PO SCH (21:26)
[2017-04-23] MEDS: BENZTROPINE MESYLATE (1 MG) 1 MG TABLET PO SCH (21:28)
[2017-04-23] MEDS: TRAZODONE 50 MG TABLET PO SCH (21:28)
[2017-04-23] MEDS: MIRTAZAPINE 15 MG TABLET PO SCH (21:29)
[2017-04-24 06:54] VITALS: BP 160/84
--- NOTE | 2017-04-24 06:59 | NUR ---
RN NOTES PATIENT ASLEEP, EASILY AROUSABLE. RESPIRATIONS EVEN. NO SIGNS OF PAIN NOTED. DUE MEDS GIVEN WITH NO ASE NOTED. NEEDS ATTENDED. KEPT CLEAN AND DRY. SAFETY PRECAUTIONS AND COMFORT MEASURES IN PLACE. WILL GIVE REPORT TO DAY SHIFT FOR CONTINUITY OF CARE.
[2017-04-24 07:05] LABS: CALCIUM, SERUM 9.7 mg/dL (8.5-10.1); CREATININE 1.1 mg/dL (0.6-1.3); MAGNESIUM 1.8 mg/dL (1.8-2.4); POTASSIUM 4.1 mmol/L (3.5-5.1)
[2017-04-24] MEDS: PANTOPRAZOLE 40 MG TABLET.DR PO SCH (07:30)
--- NOTE | 2017-04-24 07:45 | NUR ---
RN OPENING NOTES RECEIVED PT. PT IS STABLE AND SLEEPING IN BED. NO S/S OF RESP DISTRESS OR SOB. PT DOES NOT APPEAR TO BE IN PAIN. PER MD NOTE, PT WILL REQUIRE AGGRESSIVE PT POST-DISCHARGE. SAFETY MEASURES IN PLACE, CALL LIGHT WITHIN REACH. WILL CONTINUE TO MONITOR.
[2017-04-24] MEDS: LEVOTHYROXINE SODIUM 50 MCG TABLET PO SCH (08:47)
[2017-04-24] MEDS: risperiDONE 1 MG TABLET PO SCH ×2 (08:47→17:37)
[2017-04-24] MEDS: ASPIRIN 81 MG TAB.CHEW PO SCH (08:47)
[2017-04-24] MEDS: CALCIUM CARB 600MG /VIT D 1 EACH TABLET PO SCH ×2 (08:47→17:37)
[2017-04-24] MEDS: busPIRone 5 MG TABLET PO SCH ×2 (08:48→17:37)
[2017-04-24] MEDS: AMLODIPINE BESYLATE 10 MG TABLET PO SCH (08:49)
[2017-04-24] MEDS: LISINOPRIL (20MG) 20 MG TABLET PO SCH (08:49)
[2017-04-24] MEDS: METOPROLOL TARTRATE 25 MG TABLET PO SCH ×2 (09:00→17:37)
[2017-04-24] MEDS: oxyCODONE/APAP (5/325 MG) 1 UDTAB TABLET PO PRN (12:33)
[2017-04-24] MEDS: SOD FERRIC GLUC 125 MG in IV NS 0.9% 100 ML IV SCH (13:07)
[2017-04-24 16:00] VITALS: BP 157/76
--- NOTE | 2017-04-24 18:28 | NUR ---
RN CLOSING NOTES PT STABLE AND SLEEPING IN BED. THROUGHOUT THE DAY PT HAS REMAINED LETHARGIC, YET EASILY AROUSABLE. NO S/S OF RESP DISTRESS. NO C/O PAIN. ALL PT NEEDS ANTICIPATED AND MET, SAFETY MEASURES IN PLACE CALL LIGHT WITHIN REACH. WILL ENDORSE TO DIRECTOR OF STUDENT AFFAIRS FOR DEB.
--- NOTE | 2017-04-24 19:30 | NUR ---
MS RN NOTES RECEIVED RESTING COMFORTABLY ON BED,BREATHING REGULAR,NOT IN ANY FORM OF DISTRESS.S/O RIGHT AKA ON 04/[address] CARSON.DRESSING INTACT AND DRY.REPOSITION PER PROTOCOL..MONITOR FOR PAIN.SALINE LOCK LEFT HAND INTACT AND PATENT.CALL LIGHT IN REACH,NEEDS ANTICIPATED.
[2017-04-24 20:00] VITALS: BP 131/69
--- NOTE | 2017-04-24 22:00 | NUR ---
MS RN NOTES DUE PO EDS ADMINISTERED,TAKEN WELL.
[2017-04-24] MEDS: BENZTROPINE MESYLATE (1 MG) 1 MG TABLET PO SCH (22:21)
[2017-04-24] MEDS: TRAZODONE 50 MG TABLET PO SCH (22:21)
[2017-04-24] MEDS: MIRTAZAPINE 15 MG TABLET PO SCH (22:21)
[2017-04-24] MEDS: POLYETHYLENE GLYCOL 3350 17 GM POWD.PACK PO SCH (22:21)
--- NOTE | 2017-04-25 07:16 | NUR ---
MS RN NOTES NO NEW COMPLAINTS,DRESSING TO RIGHT AKA OFF,PATIENT REFUSED TO RE DRESS STUMP.POSSIBLE D/C TO SNF TODAY.ENDORSE TO WESLEY DAVIS FOR DEB
[2017-04-25 08:00] VITALS: BP 154/81
--- NOTE | 2017-04-25 08:18 | NUR ---
MS RN OPENING NOTES RECEIVED PT AWAKE IN BED IN NO ACUTE SIGNS OF DISTRESS. A/O X4, SAME VERBALLY RESPONSIVE, DENIES PAIN OR DISCOMFORTS AT THIS TIME. RIGHT AKA WITH INTACT DAVID WITH NO BLEEDING NOTED, PT REFUSED TO APPLY DRESSING. ON ROOM AIR, BREATHING EVEN AND UNLABORED. IV ACCESS ON LEFT HAND G#22 INTACT AND PATENT, FLUSHED EASILY. SAFETY MEASURES IN PLACE, BED IN LOW AND LOCKED POSITION WITH CALL LIGHT WITHIN REACH. WILL CONTINUE TO MONITOR.
[2017-04-25] MEDS: ASPIRIN 81 MG TAB.CHEW PO SCH (09:04)
[2017-04-25] MEDS: PANTOPRAZOLE 40 MG TABLET.DR PO SCH (09:04)
[2017-04-25] MEDS: busPIRone 5 MG TABLET PO SCH ×2 (09:05→17:46)
[2017-04-25] MEDS: LISINOPRIL (20MG) 20 MG TABLET PO SCH (09:05)
[2017-04-25] MEDS: METOPROLOL TARTRATE 25 MG TABLET PO SCH ×2 (09:05→17:46)
[2017-04-25] MEDS: AMLODIPINE BESYLATE 10 MG TABLET PO SCH (09:06)
[2017-04-25] MEDS: risperiDONE 1 MG TABLET PO SCH ×2 (09:06→17:46)
[2017-04-25] MEDS: LEVOTHYROXINE SODIUM 50 MCG TABLET PO SCH (09:06)
[2017-04-25] MEDS: CALCIUM CARB 600MG /VIT D 1 EACH TABLET PO SCH ×2 (09:09→17:46)
[2017-04-25] MEDS: SOD FERRIC GLUC 125 MG in IV NS 0.9% 100 ML IV SCH (13:35)
[2017-04-25] MEDS ORDERED: OXYC1TAB8 PO (15:43)
[2017-04-25 16:00] VITALS: BP 133/63
--- NOTE | 2017-04-25 19:36 | NUR ---
MS RN CLOSING NOTES PT AWAKE AND RESTING @ MODERATE HIGH BACKREST IN BED. A/O X4, SAME VERBALLY RESPONSIVE. RIGHT AKA WITH INTACT DAVID AND DRESSINGS, NO BLEEDING NOTED. ON ROOM AIR, BREATHING EVEN AND UNLABORED. IV ACCESS ON LEFT HAND G#22 INTACT AND PATENT, FLUSHED EASILY. ALL SAFETY MEASURES IN PLACE, BED IN LOW AND LOCKED POSITION WITH CALL LIGHT. ALL NEEDS AND CARE PROVIDED WELL. PT FOR DISCHARGED TONIGHT TO [facility]. REPORT GIVEN TO NURSE BUNCH. ENDORSED TO KINESIOLOGY INTERNSHIP NURSE.
[2017-04-25 20:00] VITALS: BP 138/70
[2017-04-25] MEDS: TRAZODONE 50 MG TABLET PO SCH (21:41)
[2017-04-25] MEDS: MIRTAZAPINE 15 MG TABLET PO SCH (21:41)
[2017-04-25] MEDS: BENZTROPINE MESYLATE (1 MG) 1 MG TABLET PO SCH (21:42)
[2017-04-25] MEDS: POLYETHYLENE GLYCOL 3350 17 GM POWD.PACK PO SCH ×2 (21:42→21:51)
--- NOTE | 2017-04-25 21:50 | NUR ---
MSRN DISCHARGE VIA AMBULANCE WITH ALL PERSONAL BELONGINGS IN SATISFACTORY CONDITION. TO ARU AT [facility]. REPORT GIVEN TO NORMA DAVIS.
== END 2017-04-25 21:50 | DRG 474 ==
LOC: ER 14:01 → MEDSG2 16:26
PROVIDERS: ADMIT Nurse Practitioner Acute Care; ATTEND Nurse Practitioner Acute Care
PROC: 0Y6C0Z3 Detachment at Right Upper Leg, Low, Open Approach (ICD-10-PCS; principal; 2017-04-19 07:30)
PROC: 30233N1 Transfusion of Nonautologous Red Blood Cells into Peripheral Vein, Percutaneous Approach (ICD-10-PCS; 2017-04-20)
DX: T84.53XA Infection and inflammatory reaction due to internal right knee prosthesis, initial encounter (principal); N17.0 Acute kidney failure with tubular necrosis; E83.42 Hypomagnesemia; F20.9 Schizophrenia, unspecified; T84.022A Instability of internal right knee prosthesis, initial encounter; D50.9 Iron deficiency anemia, unspecified; F17.210 Nicotine dependence, cigarettes, uncomplicated; D72.829 Elevated white blood cell count, unspecified; Y83.8 Other surgical procedures as the cause of abnormal reaction of the patient, or of later complication, without mention of misadventure at the time of the procedure; Y92.009 Unspecified place in unspecified non-institutional (private) residence as the place of occurrence of the external cause; E03.9 Hypothyroidism, unspecified; I10 Essential (primary) hypertension; J44.9 Chronic obstructive pulmonary disease, unspecified; K21.9 Gastro-esophageal reflux disease without esophagitis; M19.90 Unspecified osteoarthritis, unspecified site; F32.9 Major depressive disorder, single episode, unspecified
CPT/HCPCS: 36415; 71045-TC; 80048-TC; 80053-TC; 80061-TC; 82728-TC; 83540-TC; 83605-TC; 83735-TC; 84100-TC; 84443-TC; 84484-TC; 85025-TC; 85730-TC; 86850-TC; 86880-TC; 86921-TC; 87040-TC; 87081-TC; 93307-TC; 97110-TC; 97530-TC; A4216; A4606; A6402; A6403; J0690; J1100; J1170; J1885; J2405; J2704; J2916; J3475; J7030; J7050; J7060; P9016-BL; Z7610